=== PATIENT | female | born 1990 | race Caucasian/White ===

== ENCOUNTER 2023-06-30 20:24 | Emergency (ER) | payer BC, SELFPAY ==
--- NOTE | ~2023-06-30 | XR_ITS ---
EXAMINATION: XR ANKLE, RIGHT CLINICAL INFORMATION: Pain. COMPARISON: None available. TECHNIQUE: AP, lateral, and mortise views of the right ankle. FINDINGS: Displaced fracture of the lateral malleolus. Minimally displaced fracture projecting over the proximal fifth metatarsal on the lateral view. Diffuse soft tissue swelling more prominent adjacent to the lateral malleolus. No unexpected radiopaque foreign bodies. XR/XR ankle RT min 3V IMPRESSION: 1. Displaced fracture of the lateral malleolus. 2. Minimally displaced fracture projecting over the proximal fifth metatarsal on the lateral view.
[2023-06-30 20:28] VITALS: BP 142/79; PULSE 88; RESP 18; TEMP 36.8; O2SAT 97; BMI 37.6
--- NOTE | 2023-06-30 20:50 | PC.NURSE ---
pt presents s/p ankle injury- pt was plAYING FLAG FOOTBall, WHEN SHE TWISTED HER ANKLE and heard a pop pt rates pain 06/01 at this time,toopk 800mg I[employer] REPAIR with minimAL RELIEF- xr TAKEN AT BEDSIDE
--- NOTE | 2023-06-30 21:00 | ED.LOWEXIN ---
HPI - Extremity Injury (Lower) General Chief Complaint: Extremity Injury, Lower Stated Complaint: R ankle broken? Time Seen by Provider: 06/30/23 20:50 Source: patient Mode of arrival: ambulatory Limitations: no limitations History of Present Illness HPI Narrative: 32 yo female otherwise healthy here with R ankle pain and pop while playing indoor flag football no other injury no prior fracture to that ankle. wants to follow up at [facility] complaint: ankle injury Onset (ago): minute(s) (prior to arrival ) Injury: Right: ankle Type of Injury: other (fall) Place: other (indoor arena) Severity: moderate Relieving factors: rest Exacerbating factors: weight bearing Context: fall Associated symptoms: snap/pop sensation and swelling Other symptoms: none Related Data Previous Rx's Medication Instructions Recorded morphine 15 mg immediate release 15 mg PO Q6H PRN pain #14 tabs 06/30/23 tablet ondansetron 4 mg disintegrating 4 mg PO Q8H PRN nausea and 06/30/23 tablet vomiting #20 tabs Allergies Allergy/AdvReac Type Severity Reaction Status Date / Time No Known Allergies Allergy Verified 06/30/23 20:31 Review of Systems Review of Systems: Constitutional : No Fever, No Chills Cardiovascular : No Chest Pain, No SOB Respiratory : No Cough, No Dyspnea Gastrointestinal : No Nausea, No Vomiting, No Diarrhea, No abdominal Pain Genitourinary : No Dysuria, No Hematuria Musculoskeletal : positive joint pain, No Myalgias, pos Joint Swelling Skin : No Skin lacerations, No rash Neuro : No Weakness, No Numbness, No Loss of Consciousness, No Dizziness, No Headache Psych : No Anxiety/Panic, No Depression All other systems reviewed and are negative [facility] Past Medical History Attestation statement: The following information was validated with the patient. Medical History No pertinent past medical history Social History Social History (Updated 06/30/23 @ 21:16 by Beba Houser DO) Patient Tobacco Use Status: Never used Tobacco Smoked in Last 30 Days: No Advance Directives: No Advance Directives Information Provided: No Physical Exam Vital Signs: Vital Signs: Last Vital Signs Temp 98.2 F 06/30/23 20:28 Pulse 87 06/30/23 21:01 Resp 16 06/30/23 21:01 BP 131/80 06/30/23 21:01 Pulse Ox 99 06/30/23 21:01 O2 Del Method Room Air 06/30/23 21:01 BMI result Body Mass Index 37.6 Appearance: Alert. Oriented X3. No acute distress. Eyes: Pupils equal, round and reactive to light. ENT: Pharynx normal. Neck: Normal inspection. Neck supple. CVS: Normal heart rate and rhythm. Pulses normal. Respiratory: No respiratory distress. Breath sounds normal. Abdomen: Soft and nontender. Skin: Skin warm and dry. Normal skin color. Normal skin turgor. Extremities: R ankle moderate swelling R lateral malleolus distal NV intact, SILT intact, no prox fibula ttp, able to squeeze calf with + plantarflexion no pain to achilles appears intact Neuro: Oriented X 3. No motor deficit. No sensory deficit. Medications Administered Discontinued Medications Generic Name Dose Route Start Last Admin Trade Name Freq PRN Reason Stop Dose Admin Morphine Sulfate 15 mg 06/30/23 20:51 06/30/23 21:02 Morphine Sulfate Immed Release 15 Mg Tablet PO 06/30/23 20:52 15 mg ONCE ONE Administration Ondansetron HCl 4 mg 06/30/23 20:51 06/30/23 21:02 Ondansetron Odt 4 Mg Tab.Rapdis TRANSLINGU 06/30/23 20:52 4 mg ONCE ONE Administration Medical Decision Making Medical Decision Making [facility] Narrative: 32 yo female with direct blow and fall with pop to R ankle swelling to lateral malleolus no other injury achilles is intact and NV intact, at this time xrays and splint/crutches pain medications ordered. suspect sprain vs lateral malleolus injury Differential Diagnosis Differential Diagnoses: The differential diagnosis associated with the presentation includes sprain, strain, fracture Independent Interpretation I performed an independent interpretation of an: Plain X-Ray (fibula fracture) Radiology Impression Discussion of test interpretation with radiology: I have reviewed the radiologist's reading. Independent Historian Clinical information obtained from an independent historian. History obtained from or confirmed by: Friend Prescription Management I considered prescription management with: Pain Medication Procedures Orthopedic Splinting/Casting Injury #1: Side: right Lower Extremity Injury Location: ankle Lower Extremity Immobilizer: posterior splint and stirrup splint Other Orthopedic Equipment: crutches Discharge Plan Discharge Clinical Impression: Fracture, fibula Qualifiers: Encounter type: initial encounter Fibula location: distal Fracture type: closed Fracture morphology: unspecified fracture morphology Laterality: right Qualified Code(s): S82.831A - Other fracture of upper and lower end of right fibula, initial encounter for closed fracture Fracture of 5th metatarsal Qualifiers: Encounter type: initial encounter Fracture type: closed Fracture alignment: displaced Laterality: right Qualified Code(s): S92.351A - Displaced fracture of fifth metatarsal bone, right foot, initial encounter for closed fracture Patient Disposition: Home, Self-Care Instructions: Leg Fracture (ED) Additional Instructions: rest ice elevate no weight bearing until cleared by orthopedics follow up in next week return for numbness, severe pain, cold blue toes Prescriptions: New morphine 15 mg tablet 15 mg PO Q6H PRN (Reason: pain) Qty: 14 0RF Rx Instructions: Partial Fill upon patient request. ondansetron 4 mg tablet,disintegrating 4 mg PO Q8H PRN (Reason: nausea and vomiting) Qty: 20 0RF
[2023-06-30 21:01] VITALS: BP 131/80; PULSE 87; RESP 16; O2SAT 99
[2023-06-30] MEDS: Ondansetron ODT 4 MG TAB.RAPDIS TRANSLINGU (21:02)
[2023-06-30] MEDS: Morphine Sulfate Immed Release 15 MG TABLET PO (21:02)
== END 2023-06-30 21:54 | disposition home or self-care (01) ==
PROVIDERS: Emergency Provider Emergency Medicine; PCP Family Medicine
DX: S82.831A Other fracture of upper and lower end of right fibula, initial encounter for closed fracture (principal); S92.351A Displaced fracture of fifth metatarsal bone, right foot, initial encounter for closed fracture; M25.571 Pain in right ankle and joints of right foot; Y93.62 Activity, american flag or touch football; Y92.321 Football field as the place of occurrence of the external cause; Y99.9 Unspecified external cause status
CPT/HCPCS: 29515; 73610; 99284